=== PATIENT | male | born 1980 | race Two or more races ===

== ENCOUNTER 2019-01-12 23:58 | Inpatient (IN) | payer MEDICAID ==
[~2019-01-12] VITALS: Ht 172.7 cm; Wt 98.0 kg
[2019-01-13] VITALS (8 sets, daily range): BP systolic 110–143; BP diastolic 64–85
--- NOTE | 2019-01-13 00:20 | NUR ---
ED Nurse Note: PT CAME TO ED C/O OF ABD PAIN X2 DAYS PER PT HE HAS HAD N/V/D PAIN IS 10/10. PT SAID HE ATE PORK SKINS AND THINK THAT MAY BE THE PRBLEM
[2019-01-13] MEDS ORDERED: Ketorolac 30mg Inj IV ONE (00:30)
--- NOTE | 2019-01-13 00:34 | Emergency Room Report ---
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 patient presents to the ER denies any cough or congestion denies any blood in the stool he had minimal diarrhea Allergies: Coded Allergies: No Known Allergies (Unverified , 01/13/19) Patient History Past Medical History: see triage record Pertinent Family History: none Reviewed Nursing Documentation: PMH: Agreed; PSxH: Agreed Nursing Documentation-PMH Past Medical History: No Stated History Review of Systems All Other Systems: negative except mentioned in HPI Physical Exam Vital Signs Date Time Temp Pulse Resp B/P (MAP) Pulse Ox O2 Delivery O2 Flow Rate FiO2 01/13/19 00:09 98.8 101 16 117/81 95 Room Air Sp02 EP Interpretation: reviewed, normal General Appearance: well appearing, no apparent distress Head: normocephalic, atraumatic Eyes: bilateral eye PERRL, bilateral eye EOMI ENT: hearing grossly normal, normal pharynx, TMs + canals normal, uvula midline Neck: full range of motion, supple, no meningismus, no bony tend Respiratory: lungs clear, normal breath sounds, no rhonchi, no respiratory distress, no retraction, no accessory muscle use Cardiovascular #1: normal peripheral pulses, regular rate, rhythm, no edema, no gallop, no JVD, no murmur Gastrointestinal: normal bowel sounds, non tender, soft, no mass, no organomegaly, non-distended, no guarding, no hernia, no pulsatile mass, no rebound Genitourinary: no CVA tenderness Musculoskeletal: normal inspection Neurologic: oriented x3, responsive, 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 nml as tested, motor strength/ tone normal, sensory intact Psychiatric: mood/affect normal Skin: normal color, no rash, warm/dry, palpation normal Lymphatic: normal inspection, no adenopathy Medical Decision Making Diagnostic Impression: Primary Impression: Sepsis Additional Impression: Nausea, vomiting, and diarrhea ER Course Multiple differentials and consideration Including but not limited to pharyngitis, retropharyngeal abscess, peritonsillar abscess, meningitis Patient does not reveal clinical signs consistent with meningitis His white blood cell count however is elevated, antibodies are initiated with further hydration Patient required inpatient care Labs Test 01/13/19 00:20 01/13/19 02:23 White Blood Count 21.0 K/UL (4.8-10.8) Red Blood Count 5.21 M/UL (4.70-6.10) Hemoglobin 15.3 G/DL (14.2-18.0) Hematocrit 43.8 % (42.0-52.0) Mean Corpuscular Volume 84 FL (80-99) Mean Corpuscular Hemoglobin 29.4 PG (27.0-31.0) Mean Corpuscular Hemoglobin Concent 35.0 G/DL (32.0-36.0) Red Cell Distribution Width 11.4 % (11.6-14.8) Platelet Count 228 K/UL (150-450) Mean Platelet Volume 8.5 FL (6.5-10.1) Neutrophils (%) (Auto) % (45.0-75.0) Lymphocytes (%) (Auto) % (20.0-45.0) Monocytes (%) (Auto) % (1.0-10.0) Eosinophils (%) (Auto) % (0.0-3.0) Basophils (%) (Auto) % (0.0-2.0) Differential Total Cells Counted 100 Neutrophils % (Manual) 81 % (45-75) Lymphocytes % (Manual) 10 % (20-45) Monocytes % (Manual) 9 % (1-10) Eosinophils % (Manual) 0 % (0-3) Basophils % (Manual) 0 % (0-2) Band Neutrophils 0 % (0-8) Platelet Estimate Adequate Platelet Morphology Normal Urine Color Pale yellow Urine Appearance Clear Urine pH 6 (4.5-8.0) Urine Specific [place] 1.005 (1.005-1.035) Urine Protein Negative (NEGATIVE) Urine Glucose (UA) Negative (NEGATIVE) Urine Ketones Negative (NEGATIVE) Urine Blood Negative (NEGATIVE) Urine Nitrite Negative (NEGATIVE) Urine Bilirubin Negative (NEGATIVE) Urine Urobilinogen Normal MG/DL (0.0-1.0) Urine Leukocyte Esterase 1+ (NEGATIVE) Urine RBC 0-2 /HPF (0 - 0) Urine WBC 0-2 /HPF (0 - 0) Urine Squamous Epithelial Cells Occasional /LPF Urine Bacteria Occasional /HPF (NONE) Sodium Level 136 MMOL/L (136-145) Potassium Level 3.6 MMOL/L (3.5-5.1) Chloride Level 102 MMOL/L (98-107) Carbon Dioxide Level 25 MMOL/L (21-32) Anion Gap 9 mmol/L (5-15) Blood Urea Nitrogen 14 mg/dL (7-18) Creatinine 1.0 MG/DL (0.55-1.30) Estimat Glomerular Filtration Rate > 60 mL/min (>60) Glucose Level 131 MG/DL (74-106) Calcium Level 9.2 MG/DL (8.5-10.1) Total Bilirubin 0.7 MG/DL (0.2-1.0) Aspartate Amino Transf (AST/SGOT) 23 U/L (15-37) Alanine Aminotransferase (ALT/SGPT) 35 U/L (12-78) Alkaline Phosphatase 78 U/L (46-116) Total Creatine Kinase 202 U/L (26-308) Total Protein 8.0 G/DL (6.4-8.2) Albumin 3.7 G/DL (3.4-5.0) Globulin 4.3 g/dL Albumin/Globulin Ratio 0.9 (1.0-2.7) Lipase 267 U/L (73-393) Lactic Acid Level 0.80 mmol/L (0.4-2.0) Last Vital Signs Date Time Temp Pulse Resp B/P (MAP) Pulse Ox O2 Delivery O2 Flow Rate FiO2 01/13/19 00:09 98.8 101 16 117/81 95 Room Air Status: improved Disposition: ADMITTED INPATIENT Condition: Serious Scripts No Active Prescriptions or Reported Meds Beronica Vences DO Jan 13, 2019 00:34
[2019-01-13 00:38] LABS: APPEARANCE,URINE CLEAR; BILIRUBIN, URINE NEGATIVE (NEGATIVE); COLOR,URINE PALE YELLOW; GLUCOSE, URINE (UA) NEGATIVE (NEGATIVE); KETONES,URINE NEGATIVE (NEGATIVE); LEUKOCYTE ESTERASE ,URINE 1+ (NEGATIVE); NITRITE,URINE NEGATIVE (NEGATIVE); PH,URINE 6 (4.5-8.0); PROTEIN,URINE NEGATIVE (NEGATIVE); UROBILINOGEN,URINE NORMAL MG/DL (0.0-1.0)
[2019-01-13 00:40] LABS: HEMATOCRIT 43.8 % (42.0-52.0); HEMOGLOBIN 15.3 G/DL (14.2-18.0); MEAN CORPUSCULAR VOLUME 84 FL (80-99); PLATELET COUNT 228 K/UL (150-450); RED BLOOD COUNT 5.21 M/UL (4.70-6.10); RED CELL DISTRIBUTION WIDTH 11.4 % (11.6-14.8)
[2019-01-13 00:50] LABS: ANION GAP 9 mmol/L (5-15); BLOOD UREA NITROGEN 14 mg/dL (7-18); CALCIUM 9.2 MG/DL (8.5-10.1); CARBON DIOXIDE 25 MMOL/L (21-32); CHLORIDE 102 MMOL/L (98-107); POTASSIUM 3.6 MMOL/L (3.5-5.1); SODIUM 136 MMOL/L (136-145)
[2019-01-13 00:54] LABS: ALANINE AMINOTRANSFERASE 35 U/L (12-78); ALBUMIN 3.7 G/DL (3.4-5.0); ALBUMIN/GLOBULIN RATIO 0.9 (1.0-2.7); ALKALINE PHOSPHATASE 78 U/L (46-116); ASPARTATE AMINO TRANSFERASE 23 U/L (15-37); BILIRUBIN,TOTAL 0.7 MG/DL (0.2-1.0); CREATINE KINASE 202 U/L (26-308)
[2019-01-13] MEDS ORDERED: cefTRIAXone 1 GM in NS 55 ML IVPB ONE (01:15)
--- NOTE | 2019-01-13 03:54 | NUR ---
ED Nurse Note: telephone report given to nicole gage
--- NOTE | 2019-01-13 04:02 | NUR ---
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 PT IS AOX4, PT SKIN INTACT. PT NOT IN ACUTE DISTRESS. ALL BELONGINGS HAVE BEEN SENT WITH HE PT.
--- NOTE | 2019-01-13 04:07 | NUR ---
NURSE NOTES: Patient came from ER via gurney. Report from Lea BREWER. A&OX4. IV site patent and intact. Belonging are checked. Skin intact. at bedside. Bed in lowest position. Call light within reach. Will continue to monitor.
--- NOTE | 2019-01-13 04:25 | NUR ---
NURSE NOTES: Call and left message to Dr. Shaver to get new admit order. Waiting a call back.
--- NOTE | 2019-01-13 06:43 | NUR ---
NURSE NOTES: Call and left message to Dr. Shaver to get new admit order. Waiting a call back.
--- NOTE | 2019-01-13 07:30 | NUR ---
HAND-OFF: Report given to Gissell BREWER.
--- NOTE | 2019-01-13 07:41 | NUR ---
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 VOMITING VS: BP 117/81, P 101, T 98.7, RR 16, SpO2 95 WBC 21.0 IS:NS x1L IV TORADOL 30mg IV CEFTRIAXONE 55ml IVPB ADMITTED TO MED/SURG DC PLAN: RETURN HOME
[2019-01-13] MEDS: Ketorolac 30mg Inj IV PRN ×3 (07:55→22:00)
--- NOTE | 2019-01-13 08:00 | NUR ---
NURSE NOTES: RECEIVED PATIENT IN BED, RESTING AND ALERT x4. PATIENT C/O PAIN. PRN PAIN MEDICATION ADMINISTERED. NO SIGNS OF RESPIRATORY DISTRESS. IV INTACT. SKIN INTACT. AT BEDSIDE. BED IN LOWEST POSITION, CALL LIGHT WITHIN REACH. WILL CONTINUE TO MONITOR.
[2019-01-13 08:05] LABS: HEMATOCRIT 39.4 % (42.0-52.0); HEMOGLOBIN 13.8 G/DL (14.2-18.0); MEAN CORPUSCULAR VOLUME 84 FL (80-99); PLATELET COUNT 201 K/UL (150-450); RED BLOOD COUNT 4.67 M/UL (4.70-6.10); RED CELL DISTRIBUTION WIDTH 11.5 % (11.6-14.8); WHITE BLOOD COUNT 18.8 K/UL (4.8-10.8)
[2019-01-13] MEDS ORDERED: Albuterol/Ipratropium 3ml neb HHN PRN (08:15)
[2019-01-13] MEDS ORDERED: Promethazine/Codeine 5ml UD ORAL PRN (08:15)
[2019-01-13] MEDS ORDERED: Mylanta II UD 30ml ORAL PRN (08:15)
[2019-01-13] MEDS ORDERED: Nitroglycerin Subl 0.4mg tab SL PRN (08:15)
[2019-01-13] MEDS ORDERED: Miralax 17gm pkt ORAL PRN (08:15)
[2019-01-13 08:19] LABS: ALANINE AMINOTRANSFERASE 30 U/L (12-78); ALBUMIN 3.1 G/DL (3.4-5.0); ALBUMIN/GLOBULIN RATIO 0.8 (1.0-2.7); ALKALINE PHOSPHATASE 66 U/L (46-116); ANION GAP 12 mmol/L (5-15); ASPARTATE AMINO TRANSFERASE 19 U/L (15-37); BILIRUBIN,TOTAL 0.5 MG/DL (0.2-1.0); BLOOD UREA NITROGEN 13 mg/dL (7-18); CALCIUM 8.5 MG/DL (8.5-10.1); CARBON DIOXIDE 23 MMOL/L (21-32); CHLORIDE 105 MMOL/L (98-107); CREATININE 0.9 MG/DL (0.55-1.30); PHOSPHORUS 2.2 MG/DL (2.5-4.9); POTASSIUM 3.5 MMOL/L (3.5-5.1); SODIUM 140 MMOL/L (136-145)
--- NOTE | 2019-01-13 08:45 | Consultation ---
History of Present Illness General Date patient seen: Jan 13, 2019 Chief Complaint: Nausea, Vomiting, and Diarrhea Reason for Consultation: Sepsis Present Illness HPI Mr. Presley is 38 yo male who presented to the ED with sore throat and fever. This has been present for 3 days. He says that he has also had 3 days of mild N/ V for several days as well (NB/NB). He denies Cough, Abdominal, CP and SOB. He says that this started with some back pain. 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 He also reports testicular pain with urination but no Dysuria or discharge. He he currently and says that he is faithful to his . No recent travel. Has 5 kids but no sick contacts. No lymphodemopathy. No Hx of STI. In the ED he had no fever but WBCs of 21. PMHx/PSHX None SocHx No E/T/D FamHx Not contributory Allergies: Coded Allergies: No Known Allergies (Unverified , 01/13/19) Medication History No Active Prescriptions or Reported Meds Patient History Healthcare decision maker Resuscitation status Full Code Advanced Directive on File Review of Systems ROS Narrative 12 point ROS negative except as note in the HPI. Physical Exam Last 24 Hour Vital Signs Date Time Temp Pulse Resp B/P (MAP) Pulse Ox O2 Delivery O2 Flow Rate FiO2 01/13/19 08:00 100.1 94 21 127/72 (90) 97 01/13/19 05:17 Room Air 01/13/19 04:10 99.2 90 18 110/66 (81) 100 01/13/19 04:02 98.7 87 22 116/67 100 Room Air 01/13/19 03:58 98.7 87 22 116/67 100 Room Air 01/13/19 02:02 98.7 94 17 110/64 95 Room Air 01/13/19 01:04 98.7 01/13/19 00:20 98.8 101 16 117/81 95 Room Air 01/13/19 00:09 98.8 101 16 117/81 95 Room Air Intake and Output 01/12/19 01/13/19 18:59 06:59 Intake Total 2055 ml Output Total 1 ml Balance 2054 ml Intake IV Total 2055 ml Output Urine Total 1 ml Laboratory Tests Test 01/13/19 00:20 01/13/19 02:23 01/13/19 07:55 White Blood Count 21.0 K/UL (4.8-10.8) H 18.8 K/UL (4.8-10.8) H Red Blood Count 5.21 M/UL (4.70-6.10) 4.67 M/UL (4.70-6.10) L Hemoglobin 15.3 G/DL (14.2-18.0) 13.8 G/DL (14.2-18.0) L Hematocrit 43.8 % (42.0-52.0) 39.4 % (42.0-52.0) L Mean Corpuscular Volume 84 FL (80-99) 84 FL (80-99) Mean Corpuscular Hemoglobin 29.4 PG (27.0-31.0) 29.5 PG (27.0-31.0) Mean Corpuscular Hemoglobin Concent 35.0 G/DL (32.0-36.0) 35.0 G/DL (32.0-36.0) Red Cell Distribution Width 11.4 % (11.6-14.8) L 11.5 % (11.6-14.8) L Platelet Count 228 K/UL (150-450) 201 K/UL (150-450) Mean Platelet Volume 8.5 FL (6.5-10.1) 8.8 FL (6.5-10.1) Neutrophils (%) (Auto) % (45.0-75.0) % (45.0-75.0) Lymphocytes (%) (Auto) % (20.0-45.0) % (20.0-45.0) Monocytes (%) (Auto) % (1.0-10.0) % (1.0-10.0) Eosinophils (%) (Auto) % (0.0-3.0) % (0.0-3.0) Basophils (%) (Auto) % (0.0-2.0) % (0.0-2.0) Differential Total Cells Counted 100 Neutrophils % (Manual) 81 % (45-75) H Pending Lymphocytes % (Manual) 10 % (20-45) L Pending Monocytes % (Manual) 9 % (1-10) Eosinophils % (Manual) 0 % (0-3) Basophils % (Manual) 0 % (0-2) Band Neutrophils 0 % (0-8) Platelet Estimate Adequate Pending Platelet Morphology Normal Pending Urine Color Pale yellow Urine Appearance Clear Urine pH 6 (4.5-8.0) Urine Specific [place] 1.005 (1.005-1.035) Urine Protein Negative (NEGATIVE) Urine Glucose (UA) Negative (NEGATIVE) Urine Ketones Negative (NEGATIVE) Urine Blood Negative (NEGATIVE) Urine Nitrite Negative (NEGATIVE) Urine Bilirubin Negative (NEGATIVE) Urine Urobilinogen Normal MG/DL (0.0-1.0) Urine Leukocyte Esterase 1+ (NEGATIVE) H Urine RBC 0-2 /HPF (0 - 0) H Urine WBC 0-2 /HPF (0 - 0) Urine Squamous Epithelial Cells Occasional /LPF Urine Bacteria Occasional /HPF (NONE) Sodium Level 136 MMOL/L (136-145) 140 MMOL/L (136-145) Potassium Level 3.6 MMOL/L (3.5-5.1) 3.5 MMOL/L (3.5-5.1) Chloride Level 102 MMOL/L (98-107) 105 MMOL/L (98-107) Carbon Dioxide Level 25 MMOL/L (21-32) 23 MMOL/L (21-32) Anion Gap 9 mmol/L (5-15) 12 mmol/L (5-15) Blood Urea Nitrogen 14 mg/dL (7-18) 13 mg/dL (7-18) Creatinine 1.0 MG/DL (0.55-1.30) 0.9 MG/DL (0.55-1.30) Estimat Glomerular Filtration Rate > 60 mL/min (>60) > 60 mL/min (>60) Glucose Level 131 MG/DL (74-106) H 120 MG/DL (74-106) H Calcium Level 9.2 MG/DL (8.5-10.1) 8.5 MG/DL (8.5-10.1) Total Bilirubin 0.7 MG/DL (0.2-1.0) 0.5 MG/DL (0.2-1.0) Aspartate Amino Transf (AST/SGOT) 23 U/L (15-37) 19 U/L (15-37) Alanine Aminotransferase (ALT/SGPT) 35 U/L (12-78) 30 U/L (12-78) Alkaline Phosphatase 78 U/L (46-116) 66 U/L (46-116) Total Creatine Kinase 202 U/L (26-308) Total Protein 8.0 G/DL (6.4-8.2) 6.9 G/DL (6.4-8.2) Albumin 3.7 G/DL (3.4-5.0) 3.1 G/DL (3.4-5.0) L Globulin 4.3 g/dL 3.8 g/dL Albumin/Globulin Ratio 0.9 (1.0-2.7) L 0.8 (1.0-2.7) L Lipase 267 U/L (73-393) Lactic Acid Level 0.80 mmol/L (0.4-2.0) Phosphorus Level 2.2 MG/DL (2.5-4.9) L Magnesium Level 1.7 MG/DL (1.8-2.4) L Height (Feet): 5 Height (Inches): 8.00 Weight (Pounds): 216 Medications Current Medications Medications (Trade) Dose Ordered Sig/Malissa Route PRN Reason Start Time Stop Time Status Last Admin Dose Admin Acetaminophen (Tylenol) 650 mg Q4H PRN ORAL fever 01/13/19 08:15 02/12/19 08:14 Al Hydroxide/Mg Hydroxide (Mylanta II) 30 ml Q6H PRN ORAL dyspepsia 01/13/19 08:15 02/12/19 08:14 Albuterol/ Ipratropium (Albuterol/ Ipratropium) 3 ml Q4H PRN HHN Shortness of Breath 01/13/19 08:15 01/18/19 08:14 Cefepime HCl 1 gm/ Dextrose 55 ml @ 110 mls/hr EVERY 12 HOURS IV 01/13/19 09:00 01/20/19 08:59 Ketorolac Tromethamine (Toradol 30mg) 30 mg Q6H PRN IV For Pain 01/13/19 07:15 01/18/19 07:14 01/13/19 07:55 Nitroglycerin (Ntg) 0.4 mg Q5M PRN SL Prn Chest Pain 01/13/19 08:15 02/12/19 08:14 Ondansetron HCl (Zofran) 4 mg Q6H PRN IVP Nausea & Vomiting 01/13/19 08:15 02/12/19 08:14 Pantoprazole (Protonix) 40 mg DAILY ORAL 01/13/19 09:00 02/12/19 08:59 Polyethylene Glycol (Miralax) 17 gm DAILYPRN PRN ORAL Constipation 01/13/19 08:15 02/12/19 08:14 Promethazine HCl/ Codeine (Phenergan with Codeine) 5 ml Q4H PRN ORAL For Cough 01/13/19 08:15 02/12/19 08:14 Temazepam (Restoril) 15 mg HSPRN PRN ORAL Insomnia 01/13/19 08:15 01/20/19 08:14 Vancomycin HCl (Vanco rx to dose) 1 ea DAILY PRN MISC Per rx protocol 01/13/19 08:15 02/12/19 08:14 Vancomycin HCl/ Dextrose 275 ml @ 137.5 mls/ hr ONCE IVPB 01/13/19 10:00 01/13/19 12:00 Objective Narrative Gen: NAD, well appearing, alert HEENT: NCAT, MMM, EOMI, PERRL, No Oral lesions pharynx with only mild erythema, no scleral icterus NECK: full range of motion, supple, no meningismus, No LAD, No JVD LUNGS: CTAB, No W/C, No Accessory muscle use CARDS: RRR, S1, S2, No M/R/G, ABD: Soft, NT, ND, No R/G, + BS, No HSM, No Masses : Deferred Ext: C/C/E, Pulses 2+ B/L (DP, Rad): NEURO: A/O x 4, Strength and Sensation Grossly intact PSYCH: Mood/affect normal SKIN: Warm/dry, No rashes Assessment/Plan Assessment/Plan 38 yo male who presented to the ED with sore throat and fever. This has been present for several days. Sore throat and with N/V Most likely viral infection Bacterial possible Imaging still pending Leukocytosis of 21 Aferbile PLAN - Start Ceftriaxone and Azithromycin to cover CAP pending studies - EKG to evalaute QTc as starting Azithromycin - f/u Cx - f/u CXR - f/u Abd US - HIV - Urine GC/Ch - Monitor CBC and Temps Thank you for this consult. We will continue to follow the patient during this hospitalization. Aristeo Melo MD Jan 13, 2019 08:45
[2019-01-13] MEDS ORDERED: Heparin 5000 units/ml inj SUBQ SCH (09:00)
[2019-01-13] MEDS ORDERED: Cefepime HCl 1 GM in D5W 55 ML IV SCH (09:00)
[2019-01-13] MEDS ORDERED: Azithromycin 250mg tab ORAL SCH (09:00)
[2019-01-13] MEDS ORDERED: Vancomycin 1.5gm Premix IVPB SCH (10:00)
--- NOTE | 2019-01-13 12:32 | Diagnostic Imaging Report ---
Indication: Elbow pain, nausea, vomiting, abnormal white blood cell count Technique: Gomez-scale and duplex images of the upper abdomen were obtained Comparison: none Findings: Gallbladder is unremarkable, without stones, wall thickening, nor pericholecystic fluid. Sonographic Farrar's sign is negative. Common bile duct measures 6 mm in diameter. No intrahepatic biliary ductal dilatation. Liver demonstrates diffusely increased echogenicity, consistent with diffuse hepatocellular disease, most likely fatty change, into somewhat geographic distribution. Portal vein and hepatic veins are patent. Pancreas is unremarkable. The spleen contains a calcification, is otherwise unremarkable Left kidney measures 10.5 cm in length. Right kidney measures 11.9 cm length. Both kidneys demonstrate normal echogenicity. There is no hydronephrosis. No focal abnormality . Non-aneurysmal abdominal aorta . Impression: Liver demonstrates diffusely increased echogenicity, consistent with diffuse hepatocellular disease, most likely fatty change. Negative for gallstones or dilated ducts Calcification within the spleen, probably on the basis of old granulomatous disease
--- NOTE | 2019-01-13 14:39 | Consultation ---
History of Present Illness General Date patient seen: Jan 13, 2019 Chief Complaint: Nausea, Vomiting, and Diarrhea Reason for Consultation: Sepsis Present Illness HPI 38 year old male presented to ER with CC of nausea/vomiting started a few days ago after eating ethnic food, some kind of pork rib. His initial evaluation showed that he has severe leukocytosis and is admitted for further w/u. Allergies: Coded Allergies: No Known Allergies (Unverified , 01/13/19) Medication History No Active Prescriptions or Reported Meds Patient History Healthcare decision maker Resuscitation status Full Code Advanced Directive on File Review of Systems All Other Systems: negative except mentioned in HPI Physical Exam General Appearance: WD/WN Lines, tubes and drains: central line HEENT: normocephalic, atraumatic Neck: non-tender, supple Respiratory/Chest: chest wall non-tender, lungs clear Cardiovascular/Chest: normal peripheral pulses, normal rate Abdomen: normal bowel sounds Genitourinary/Rectal: normal genital exam Extremities: normal range of motion Last 24 Hour Vital Signs Date Time Temp Pulse Resp B/P (MAP) Pulse Ox O2 Delivery O2 Flow Rate FiO2 01/13/19 12:00 98.8 96 19 124/76 (92) 96 01/13/19 09:56 99.0 01/13/19 09:00 Room Air 01/13/19 08:00 100.1 94 21 127/72 (90) 97 01/13/19 05:17 Room Air 01/13/19 04:10 99.2 90 18 110/66 (81) 100 01/13/19 04:02 98.7 87 22 116/67 100 Room Air 01/13/19 03:58 98.7 87 22 116/67 100 Room Air 01/13/19 02:02 98.7 94 17 110/64 95 Room Air 01/13/19 01:04 98.7 01/13/19 00:20 98.8 101 16 117/81 95 Room Air 01/13/19 00:09 98.8 101 16 117/81 95 Room Air Intake and Output 01/12/19 01/13/19 19:00 07:00 Intake Total 2055 ml Output Total 1 ml Balance 2054 ml Intake IV Total 2055 ml Output Urine Total 1 ml Laboratory Tests Test 01/13/19 00:20 01/13/19 02:23 01/13/19 07:55 01/13/19 10:30 White Blood Count 21.0 K/UL (4.8-10.8) H 18.8 K/UL (4.8-10.8) H Red Blood Count 5.21 M/UL (4.70-6.10) 4.67 M/UL (4.70-6.10) L Hemoglobin 15.3 G/DL (14.2-18.0) 13.8 G/DL (14.2-18.0) L Hematocrit 43.8 % (42.0-52.0) 39.4 % (42.0-52.0) L Mean Corpuscular Volume 84 FL (80-99) 84 FL (80-99) Mean Corpuscular Hemoglobin 29.4 PG (27.0-31.0) 29.5 PG (27.0-31.0) Mean Corpuscular Hemoglobin Concent 35.0 G/DL (32.0-36.0) 35.0 G/DL (32.0-36.0) Red Cell Distribution Width 11.4 % (11.6-14.8) L 11.5 % (11.6-14.8) L Platelet Count 228 K/UL (150-450) 201 K/UL (150-450) Mean Platelet Volume 8.5 FL (6.5-10.1) 8.8 FL (6.5-10.1) Neutrophils (%) (Auto) % (45.0-75.0) % (45.0-75.0) Lymphocytes (%) (Auto) % (20.0-45.0) % (20.0-45.0) Monocytes (%) (Auto) % (1.0-10.0) % (1.0-10.0) Eosinophils (%) (Auto) % (0.0-3.0) % (0.0-3.0) Basophils (%) (Auto) % (0.0-2.0) % (0.0-2.0) Differential Total Cells Counted 100 100 Neutrophils % (Manual) 81 % (45-75) H 87 % (45-75) H Lymphocytes % (Manual) 10 % (20-45) L 12 % (20-45) L Monocytes % (Manual) 9 % (1-10) 1 % (1-10) Eosinophils % (Manual) 0 % (0-3) 0 % (0-3) Basophils % (Manual) 0 % (0-2) 0 % (0-2) Band Neutrophils 0 % (0-8) 0 % (0-8) Platelet Estimate Adequate Adequate Platelet Morphology Normal Normal Urine Color Pale yellow Urine Appearance Clear Urine pH 6 (4.5-8.0) Urine Specific [place] 1.005 (1.005-1.035) Urine Protein Negative (NEGATIVE) Urine Glucose (UA) Negative (NEGATIVE) Urine Ketones Negative (NEGATIVE) Urine Blood Negative (NEGATIVE) Urine Nitrite Negative (NEGATIVE) Urine Bilirubin Negative (NEGATIVE) Urine Urobilinogen Normal MG/DL (0.0-1.0) Urine Leukocyte Esterase 1+ (NEGATIVE) H Urine RBC 0-2 /HPF (0 - 0) H Urine WBC 0-2 /HPF (0 - 0) Urine Squamous Epithelial Cells Occasional /LPF Urine Bacteria Occasional /HPF (NONE) Sodium Level 136 MMOL/L (136-145) 140 MMOL/L (136-145) Potassium Level 3.6 MMOL/L (3.5-5.1) 3.5 MMOL/L (3.5-5.1) Chloride Level 102 MMOL/L (98-107) 105 MMOL/L (98-107) Carbon Dioxide Level 25 MMOL/L (21-32) 23 MMOL/L (21-32) Anion Gap 9 mmol/L (5-15) 12 mmol/L (5-15) Blood Urea Nitrogen 14 mg/dL (7-18) 13 mg/dL (7-18) Creatinine 1.0 MG/DL (0.55-1.30) 0.9 MG/DL (0.55-1.30) Estimat Glomerular Filtration Rate > 60 mL/min (>60) > 60 mL/min (>60) Glucose Level 131 MG/DL (74-106) H 120 MG/DL (74-106) H Calcium Level 9.2 MG/DL (8.5-10.1) 8.5 MG/DL (8.5-10.1) Total Bilirubin 0.7 MG/DL (0.2-1.0) 0.5 MG/DL (0.2-1.0) Aspartate Amino Transf (AST/SGOT) 23 U/L (15-37) 19 U/L (15-37) Alanine Aminotransferase (ALT/SGPT) 35 U/L (12-78) 30 U/L (12-78) Alkaline Phosphatase 78 U/L (46-116) 66 U/L (46-116) Total Creatine Kinase 202 U/L (26-308) Total Protein 8.0 G/DL (6.4-8.2) 6.9 G/DL (6.4-8.2) Albumin 3.7 G/DL (3.4-5.0) 3.1 G/DL (3.4-5.0) L Globulin 4.3 g/dL 3.8 g/dL Albumin/Globulin Ratio 0.9 (1.0-2.7) L 0.8 (1.0-2.7) L Lipase 267 U/L (73-393) HIV (1&2) Antibody Rapid Negative (NEGATIVE) Lactic Acid Level 0.80 mmol/L (0.4-2.0) Red Blood Cell Morphology Normal Phosphorus Level 2.2 MG/DL (2.5-4.9) L Magnesium Level 1.7 MG/DL (1.8-2.4) L Chlamydia trachomatis RNA Pending Neisseria gonorrhoeae RNA Pending Height (Feet): 5 Height (Inches): 8.00 Weight (Pounds): 216 Medications Current Medications Medications (Trade) Dose Ordered Sig/Malissa Route PRN Reason Start Time Stop Time Status Last Admin Dose Admin Acetaminophen (Tylenol) 650 mg Q4H PRN ORAL fever 01/13/19 08:15 02/12/19 08:14 01/13/19 09:26 Al Hydroxide/Mg Hydroxide (Mylanta II) 30 ml Q6H PRN ORAL dyspepsia 01/13/19 08:15 02/12/19 08:14 Albuterol/ Ipratropium (Albuterol/ Ipratropium) 3 ml Q4H PRN HHN Shortness of Breath 01/13/19 08:15 01/18/19 08:14 Azithromycin (Zithromax) 250 mg DAILY ORAL 01/14/19 09:00 01/17/19 23:55 Ceftriaxone Sodium 1 gm/ Dextrose 55 ml @ 110 mls/hr Q24H IVPB 01/13/19 21:00 01/20/19 20:59 Ketorolac Tromethamine (Toradol 30mg) 30 mg Q6H PRN IV For Pain 01/13/19 07:15 01/18/19 07:14 01/13/19 07:55 Nitroglycerin (Ntg) 0.4 mg Q5M PRN SL Prn Chest Pain 01/13/19 08:15 02/12/19 08:14 Ondansetron HCl (Zofran) 4 mg Q6H PRN IVP Nausea & Vomiting 01/13/19 08:15 02/12/19 08:14 Pantoprazole (Protonix) 40 mg DAILY ORAL 01/13/19 09:00 02/12/19 08:59 01/13/19 09:26 Polyethylene Glycol (Miralax) 17 gm DAILYPRN PRN ORAL Constipation 01/13/19 08:15 02/12/19 08:14 Promethazine HCl/ Codeine (Phenergan with Codeine) 5 ml Q4H PRN ORAL For Cough 01/13/19 08:15 02/12/19 08:14 Temazepam (Restoril) 15 mg HSPRN PRN ORAL Insomnia 01/13/19 08:15 01/20/19 08:14 Assessment/Plan Problem List: (1) Nausea, vomiting, and diarrhea ICD Codes: R11.2 - Nausea with vomiting, unspecified; R19.7 - Diarrhea, unspecified SNOMED: 9139031 (2) Sepsis ICD Codes: A41.9 - Sepsis, unspecified organism SNOMED: 46111443 Assessment/Plan c/u stool cultures iv fluids iv abx check wbc in am. Maryana Moscoso MD Jan 13, 2019 14:39
--- NOTE | 2019-01-13 16:26 | History & Physical ---
History and Physical History & Physicial job # [id number] Ranjith Shaver MD Jan 13, 2019 16:26
[2019-01-13] MEDS ORDERED: Isovue-300 100ml vial INJ PRN (16:30)
[2019-01-13] MEDS ORDERED: Vancomycin 1gm/D5W 275ml IVPB SCH ×2 (18:00)
--- NOTE | 2019-01-13 19:22 | Diagnostic Imaging Report ---
EXAM: CT Abdomen and Pelvis With Intravenous Contrast CLINICAL HISTORY: ABD DIST TECHNIQUE: Axial computed tomography images of the abdomen and pelvis with intravenous contrast. CTDI is 0.15, 18.4 mGy and DLP is 1008 mGy-cm. One or more of the following dose reduction techniques were used: automated exposure control, adjustment of the mA and/or kV according to patient size, use of iterative reconstruction technique. Coronal and sagittal reformatted images were created and reviewed. COMPARISON: No relevant prior studies available. FINDINGS: Lung bases: Probable mild linear atelectasis versus scarring at the lung bases. ABDOMEN: Liver: The liver is unremarkable. Gallbladder and bile ducts: The gallbladder is unremarkable. No calcified stones. No ductal dilation. Pancreas: The pancreas is unremarkable. No ductal dilation. Spleen: The spleen is unremarkable. Adrenals: The adrenals are unremarkable. Kidneys and ureters: Mild scarring suspected of the left kidney. No hydronephrosis. Stomach and bowel: No evidence for significant bowel loop dilation to suggest an obstructive process. Diverticulosis without evidence for diverticulitis. No evidence for bowel related inflammatory changes. PELVIS: Appendix: The appendix is normal. Bladder: The bladder is grossly unremarkable. Reproductive: The prostate gland appears prominent measuring 5.5 x 4.1 cm in maximum transverse dimensions. ABDOMEN and PELVIS: Intraperitoneal space: No free intraperitoneal fluid or free intraperitoneal gas. Bones/joints: Mild degenerative changes of the thoracolumbar spine. No acute fracture. No dislocation. Soft tissues: Unremarkable. Vasculature: Unremarkable. No abdominal aortic aneurysm. Lymph nodes: Unremarkable. No enlarged lymph nodes. IMPRESSION: 1. No evidence for significant bowel loop dilation to suggest an obstructive process. 2. The prostate gland appears prominent measuring 5.5 x 4.1 cm in maximum transverse dimensions. 3. Diverticulosis without evidence for diverticulitis.
--- NOTE | 2019-01-13 19:27 | NUR ---
HAND-OFF: Report given to OSMAN ELENA.
--- NOTE | 2019-01-13 19:30 | NUR ---
NURSE NOTES: Received patient in no apparent distress. A&OX4. IV site patent and intact. at bedside. Bed in lowest position. Call light within reach. Will continue to monitor.
[2019-01-13] MEDS: cefTRIAXone 1 GM in D5W 55 ML IVPB SCH (21:38)
[2019-01-13] MEDS ORDERED: cefTRIAXone 1 GM in D5W 55 ML IVPB SCH (22:00)
--- NOTE | 2019-01-13 22:00 | History and Physical Report ---
DATE OF ADMISSION: 01/13/2019 CHIEF COMPLAINT: Left flank pain. HISTORY OF PRESENT ILLNESS: This is a 38-year-old gentleman, denies any past medical history and past surgical history, who presented to the hospital complaining about the severe back pain mostly in the left flank area associated with the nausea and vomiting. He denies any fever or chills. Denies any loss of consciousness. Denies any fall or trauma. Shortly after initial evaluation in the emergency, the patient was admitted to the hospital with nausea and vomiting and diarrhea and a mild elevation of WBC, possible due to infection. PAST MEDICAL HISTORY/PAST SURGICAL HISTORY: None. MEDICATIONS: None. ALLERGIES: No known drug allergies. SOCIAL HISTORY: No smoking, alcohol, or drugs. FAMILY HISTORY: Noncontributory. REVIEW OF SYSTEMS: Mostly as above. PHYSICAL EXAMINATION: VITAL SIGNS: Temperature 98.8, pulse of 101, respirations 16, and blood pressure 117/81. GENERAL: The patient is awake and responsive, in no acute distress. HEAD AND NECK: Pupils are reactive to light. Extraocular movements intact. Neck was supple. No JVD. LUNGS: Good air entry. No wheezing or rales. HEART: Reveals S1, S2. Regular rate and rhythm. No gallops. ABDOMEN: Soft, nondistended, and nontender. Mildly obese. Left flank tenderness. No rebound or tenderness. No fluid shift. EXTREMITIES: No cyanosis, clubbing, or edema. NEUROLOGIC: Cranial nerves II through XII grossly intact. Motor is 5/5 in all extremities. Gait is intact. RECTAL AND GENITOURINARY: Refused and deferred. PSYCHIATRIC: Mood and affect intact. LABORATORY DATA: Laboratory on admission, sodium 136, potassium 3.6, chloride 103, bicarb 25, BUN 14, and creatinine 1.0. The patient's calcium was 9.2, magnesium was 1.7, and albumin is 3.7. Lipase is 267. AST of 23, ALT of 35, and alkaline phosphatase of 78. Urinalysis, +1 leukocyte and 0 to 2 wbc. Rapid human immunodeficiency virus test is negative. WBC of 21, hemoglobin 15, hematocrit of 43, and platelets is 228,000. The patient had an ultrasound of the abdomen done, which noted to be liver demonstrated diffuse increased echogenicity consistent with diffuse hepatocellular disease, most likely fatty liver, negative for the gallstone or dilated duct, calcification within the splint, and probable base of the old granulomatous disease. ASSESSMENT: 1. Left flank tenderness. 2. Elevated WBC, possible sepsis. PLAN: 1. Admit the patient to medical/surgical. 2. We will follow up laboratory. 3. Clear liquid diet. 4. CT scan of the abdomen and pelvis. 5. Broad-spectrum antibiotics with Rocephin and follow up with the culture. 6. Code status is Full Code. 7. DVT prophylaxis with heparin subcutaneous. aRnjith Shaver M.D. DR: FRANCIA JOB#: [id number] CC:
[2019-01-14 04:00] VITALS: BP 124/68
--- NOTE | 2019-01-14 07:09 | NUR ---
HAND-OFF: Report given to Gissell BREWER.
[2019-01-14] MEDS ORDERED: IBUPROFEN600 MG ORAL (07:29)
[2019-01-14 07:32] LABS: BASOPHILS % (AUTO) 0.6 % (0.0-2.0); EOSINOPHILS % (AUTO) 0.9 % (0.0-3.0); HEMATOCRIT 37.3 % (42.0-52.0); HEMOGLOBIN 13.1 G/DL (14.2-18.0); LYMPHOCYTES % (AUTO) 18.1 % (20.0-45.0); MEAN CORPUSCULAR VOLUME 85 FL (80-99); MONOCYTES % (AUTO) 9.5 % (1.0-10.0); NEUTROPHILS % (AUTO) 70.9 % (45.0-75.0); PLATELET COUNT 192 K/UL (150-450); RED BLOOD COUNT 4.38 M/UL (4.70-6.10); RED CELL DISTRIBUTION WIDTH 11.6 % (11.6-14.8); WHITE BLOOD COUNT 16.5 K/UL (4.8-10.8)
[2019-01-14 08:00] VITALS: BP 125/75
--- NOTE | 2019-01-14 08:00 | NUR ---
NURSE NOTES: RECEIVED PATIENT IN BED, RESTING AND ALERT x4. AT BEDSIDE. PATIENT C/O MILD PAIN BUT NOT REQUESTING PRN PAIN MEDICATION. IV INTACT. RESPIRATIONS EVEN AND UNLABORED. NO SIGNS OF RESPIRATORY DISTRESS. BED IN LOWEST POSITION, PATIENT'S IPHONE AT BEDSIDE. CALL LIGHT WITHIN REACH. WILL CONTINUE TO MONITOR.
[2019-01-14 08:01] LABS: ALANINE AMINOTRANSFERASE 34 U/L (12-78); ALBUMIN 2.9 G/DL (3.4-5.0); ALBUMIN/GLOBULIN RATIO 0.7 (1.0-2.7); ALKALINE PHOSPHATASE 66 U/L (46-116); ANION GAP 9 mmol/L (5-15); ASPARTATE AMINO TRANSFERASE 19 U/L (15-37); BILIRUBIN,TOTAL 0.3 MG/DL (0.2-1.0); BLOOD UREA NITROGEN 12 mg/dL (7-18); CALCIUM 8.7 MG/DL (8.5-10.1); CARBON DIOXIDE 24 MMOL/L (21-32); CHLORIDE 106 MMOL/L (98-107); CREATININE 0.8 MG/DL (0.55-1.30); PHOSPHORUS 3.1 MG/DL (2.5-4.9); POTASSIUM 3.7 MMOL/L (3.5-5.1); SODIUM 139 MMOL/L (136-145)
[2019-01-14] MEDS: Azithromycin 250mg tab ORAL SCH (08:09)
[2019-01-14 12:00] VITALS: BP 122/87
--- NOTE | 2019-01-14 12:11 | Pulmonology Progress Note ---
Assessment/Plan Problems: (1) Nausea, vomiting, and diarrhea (2) Sepsis (3) Acute bacterial tonsillitis Assessment/Plan iv abx CT of neck check electrolytes will hc home when afebrile for > 24 hours. Subjective ROS Limited/Unobtainable: No Constitutional: Reports: no symptoms HEENT: Repors: no symptoms Allergies: Coded Allergies: No Known Allergies (Unverified , 01/13/19) Objective Last 24 Hour Vital Signs Date Time Temp Pulse Resp B/P (MAP) Pulse Ox O2 Delivery O2 Flow Rate FiO2 01/14/19 12:00 101.4 100 22 122/87 (99) 97 01/14/19 09:00 Room Air 01/14/19 08:00 98.2 86 16 125/75 (92) 97 01/14/19 07:50 86 20 Room Air 21 01/14/19 04:00 98.4 83 18 124/68 (86) 96 01/13/19 21:00 Room Air 01/13/19 20:51 102 24 Room Air 21 01/13/19 20:00 100.1 90 19 110/74 (86) 97 01/13/19 16:24 99.2 01/13/19 16:00 100.5 97 18 143/85 (104) 97 Intake and Output 01/13/19 01/14/19 18:59 06:59 Intake Total 855 ml Balance 855 ml Intake IV Total 55 ml Other 800 ml # Voids 1 Objective General Appearance: WD/WN Lines, tubes and drains: peripheral HEENT: normocephalic, anicteric Neck: non-tender, normal alignment Respiratory/Chest: chest wall non-tender, lungs clear Breasts: no masses Cardiovascular/Chest: normal peripheral pulses Abdomen: normal bowel sounds Genitourinary/Rectal: normal genital Microbiology Date/Time Source Procedure Growth Status 01/13/19 10:30 Throat Group A Streptococcus Screen ([facility]) - Preliminary Resulted Laboratory Tests 01/14/19 06:40: White Blood Count 16.5H, Red Blood Count 4.38L, Hemoglobin 13.1L, Hematocrit 37.3L, Mean Corpuscular Volume 85, Mean Corpuscular Hemoglobin 29.8, Mean Corpuscular Hemoglobin Concent 35.0, Red Cell Distribution Width 11.6, Platelet Count 192, Mean Platelet Volume 8.5, Neutrophils (%) (Auto) 70.9, Lymphocytes (% ) (Auto) 18.1L, Monocytes (%) (Auto) 9.5, Eosinophils (%) (Auto) 0.9, Basophils (%) (Auto) 0.6, Erythrocyte Sedimentation Rate 34H, Sodium Level 139, Potassium Level 3.7, Chloride Level 106, Carbon Dioxide Level 24, Anion Gap 9, Blood Urea Nitrogen 12, Creatinine 0.8, Estimat Glomerular Filtration Rate > 60, Glucose Level 100, Calcium Level 8.7, Phosphorus Level 3.1, Magnesium Level 1.9, Total Bilirubin 0.3, Aspartate Amino Transf (AST/SGOT) 19, Alanine Aminotransferase ( ALT/SGPT) 34, Alkaline Phosphatase 66, C-Reactive Protein, Quantitative 16.4H, Total Protein 7.0, Albumin 2.9L, Globulin 4.1, Albumin/Globulin Ratio 0.7L Current Medications Medications (Trade) Dose Ordered Sig/Malissa Route PRN Reason Start Time Stop Time Status Last Admin Dose Admin Acetaminophen (Tylenol) 650 mg Q4H PRN ORAL fever 01/13/19 08:15 02/12/19 08:14 01/13/19 15:54 Al Hydroxide/Mg Hydroxide (Mylanta II) 30 ml Q6H PRN ORAL dyspepsia 01/13/19 08:15 02/12/19 08:14 Albuterol/ Ipratropium (Albuterol/ Ipratropium) 3 ml Q4H PRN HHN Shortness of Breath 01/13/19 08:15 01/18/19 08:14 Azithromycin (Zithromax) 250 mg DAILY ORAL 01/14/19 09:00 01/17/19 23:55 01/14/19 08:09 Barium Sulfate (Readi-Cat 2) 450 ml NOW PRN ORAL Radiology Procedure 01/13/19 16:30 01/15/19 16:20 Ceftriaxone Sodium 1 gm/ Dextrose 55 ml @ 110 mls/hr Q24H IVPB 01/13/19 21:00 01/20/19 20:59 01/13/19 21:38 Iopamidol (Isovue-300 100ml) 100 ml NOW PRN INJ Radiology Procedure 01/13/19 16:30 01/15/19 16:29 Ketorolac Tromethamine (Toradol 30mg) 30 mg Q6H PRN IV For Pain 01/13/19 07:15 01/18/19 07:14 01/13/19 22:00 Nitroglycerin (Ntg) 0.4 mg Q5M PRN SL Prn Chest Pain 01/13/19 08:15 02/12/19 08:14 Ondansetron HCl (Zofran) 4 mg Q6H PRN IVP Nausea & Vomiting 01/13/19 08:15 02/12/19 08:14 Pantoprazole (Protonix) 40 mg DAILY ORAL 01/13/19 09:00 02/12/19 08:59 01/14/19 08:09 Polyethylene Glycol (Miralax) 17 gm DAILYPRN PRN ORAL Constipation 01/13/19 08:15 02/12/19 08:14 Promethazine HCl/ Codeine (Phenergan with Codeine) 5 ml Q4H PRN ORAL For Cough 01/13/19 08:15 02/12/19 08:14 Temazepam (Restoril) 15 mg HSPRN PRN ORAL Insomnia 01/13/19 08:15 01/20/19 08:14 Maryana Moscoso MD Jan 14, 2019 12:11
[2019-01-14] MEDS ORDERED: Isovue-300 100ml vial INJ PRN (12:15)
--- NOTE | 2019-01-14 14:28 | Diagnostic Imaging Report ---
INDICATION: Abscess TECHNIQUE: Multiple, contiguous 2.5 mm axial cuts of the neck are obtained from the skull base to the thoracic inlet following the administration of IV contrast. Sagittal and coronal reformatted images are provided. Technique more: One or more of the following dose reduction techniques were used: automated exposure control, adjustment of the mA and/or kV according to patient size, use of iterative reconstruction technique. COMPARISON: None FINDINGS: The visualized portions of the middle and posterior fossa of the brain are normal. The soft tissues of the nasopharynx, oropharynx and hypopharynx appear normal. The supraglottic, glottic and infraglottic structures including the true and false cords, thyroid lamina and cricoid are symmetric and normal in appearance. Enlarged bilateral parapharyngeal tonsils may be suggestive of tonsillitis. Scattered prominent but not enlarged by CT size criteria lymph nodes. No organized fluid collection. The parotid, submandibular and thyroid glands are normal in size and attenuation. The airway is patent and the trachea is midline. No bony abnormalities are seen. IMPRESSION: Enlarged bilateral parapharyngeal tonsils may be suggestive of tonsillitis. Scattered prominent but not enlarged by CT size criteria lymph nodes. No organized fluid collection. CTDI: 20.06 mGy DLP: 507.59 mGycm
--- NOTE | 2019-01-14 15:15 | Infectious Diseases Prog Note ---
Assessment/Plan Assessment/Plan Assessment/Plan 38 yo male who presented to the ED with sore throat and fever. This has been present for several days. Sore throat and with N/V- Tonsillitis Most likely viral infection Bacterial possible Neck CT: Enlarged bilateral parapharyngeal tonsils may be suggestive of tonsillitis. Scattered prominent but not enlarged by CT size criteria lymph nodes. No organized fluid collection. -CXR p Leukocytosis of 21; irmpoving Fever -CT abdp: 1. No evidence for significant bowel loop dilation to suggest an obstructive process.The prostate gland appears prominent measuring 5.5 x 4.1 cm in maximum transverse dimensions. Diverticulosis without evidence for diverticulitis. -hIV ab neg strep sc neg PLAN -Cont Ceftriaxone and Azithromycin #2 to cover CAP pending studies -Add empiric Tamiflu -throat cx - EKG to evalaute QTc as starting Azithromycin - f/u Cx - f/u CXR - f/u Abd US - f/u Urine GC/Ch - Monitor CBC and Temps -HIV VL, monospot, influenza sc Thank you for this consult. We will continue to follow the patient during this hospitalization. Subjective Allergies: Coded Allergies: No Known Allergies (Unverified , 01/13/19) Objective Vital Signs Last 24 Hour Vital Signs Date Time Temp Pulse Resp B/P (MAP) Pulse Ox O2 Delivery O2 Flow Rate FiO2 01/14/19 12:42 98.9 01/14/19 12:00 101.4 100 22 122/87 (99) 97 01/14/19 09:00 Room Air 01/14/19 08:00 98.2 86 16 125/75 (92) 97 01/14/19 07:50 86 20 Room Air 21 01/14/19 04:00 98.4 83 18 124/68 (86) 96 01/13/19 21:00 Room Air 01/13/19 20:51 102 24 Room Air 21 01/13/19 20:00 100.1 90 19 110/74 (86) 97 01/13/19 16:00 100.5 97 18 143/85 (104) 97 Height (Feet): 5 Height (Inches): 8.00 Weight (Pounds): 216 Objective Gen: NAD, well appearing, alert HEENT: NCAT, MMM, EOMI, PERRL, No Oral lesions pharynx with only mild erythema, no scleral icterus NECK: full range of motion, supple, no meningismus, No LAD, No JVD LUNGS: CTAB, No W/C, No Accessory muscle use CARDS: RRR, S1, S2, No M/R/G, ABD: Soft, NT, ND, No R/G, + BS, No HSM, No Masses : Deferred Ext: C/C/E, Pulses 2+ B/L (DP, Rad): NEURO: A/O x 4, Strength and Sensation Grossly intact PSYCH: Mood/affect normal SKIN: Warm/dry, No rashes Microbiology Date/Time Source Procedure Growth Status 01/13/19 10:30 Throat Group A Streptococcus Screen ([facility]) - Preliminary Resulted Laboratory Tests Test 01/14/19 06:40 White Blood Count 16.5 K/UL (4.8-10.8) H Red Blood Count 4.38 M/UL (4.70-6.10) L Hemoglobin 13.1 G/DL (14.2-18.0) L Hematocrit 37.3 % (42.0-52.0) L Mean Corpuscular Volume 85 FL (80-99) Mean Corpuscular Hemoglobin 29.8 PG (27.0-31.0) Mean Corpuscular Hemoglobin Concent 35.0 G/DL (32.0-36.0) Red Cell Distribution Width 11.6 % (11.6-14.8) Platelet Count 192 K/UL (150-450) Mean Platelet Volume 8.5 FL (6.5-10.1) Neutrophils (%) (Auto) 70.9 % (45.0-75.0) Lymphocytes (%) (Auto) 18.1 % (20.0-45.0) L Monocytes (%) (Auto) 9.5 % (1.0-10.0) Eosinophils (%) (Auto) 0.9 % (0.0-3.0) Basophils (%) (Auto) 0.6 % (0.0-2.0) Erythrocyte Sedimentation Rate 34 MM/HR (0-15) H Sodium Level 139 MMOL/L (136-145) Potassium Level 3.7 MMOL/L (3.5-5.1) Chloride Level 106 MMOL/L (98-107) Carbon Dioxide Level 24 MMOL/L (21-32) Anion Gap 9 mmol/L (5-15) Blood Urea Nitrogen 12 mg/dL (7-18) Creatinine 0.8 MG/DL (0.55-1.30) Estimat Glomerular Filtration Rate > 60 mL/min (>60) Glucose Level 100 MG/DL (74-106) Calcium Level 8.7 MG/DL (8.5-10.1) Phosphorus Level 3.1 MG/DL (2.5-4.9) Magnesium Level 1.9 MG/DL (1.8-2.4) Total Bilirubin 0.3 MG/DL (0.2-1.0) Aspartate Amino Transf (AST/SGOT) 19 U/L (15-37) Alanine Aminotransferase (ALT/SGPT) 34 U/L (12-78) Alkaline Phosphatase 66 U/L (46-116) C-Reactive Protein, Quantitative 16.4 mg/dL (0.00-0.90) H Total Protein 7.0 G/DL (6.4-8.2) Albumin 2.9 G/DL (3.4-5.0) L Globulin 4.1 g/dL Albumin/Globulin Ratio 0.7 (1.0-2.7) L Current Medications Medications (Trade) Dose Ordered Sig/Malissa Route PRN Reason Start Time Stop Time Status Last Admin Dose Admin Acetaminophen (Tylenol) 650 mg Q4H PRN ORAL fever 01/13/19 08:15 02/12/19 08:14 01/14/19 12:12 Al Hydroxide/Mg Hydroxide (Mylanta II) 30 ml Q6H PRN ORAL dyspepsia 01/13/19 08:15 02/12/19 08:14 Albuterol/ Ipratropium (Albuterol/ Ipratropium) 3 ml Q4H PRN HHN Shortness of Breath 01/13/19 08:15 01/18/19 08:14 Azithromycin (Zithromax) 250 mg DAILY ORAL 01/14/19 09:00 01/17/19 23:55 01/14/19 08:09 Barium Sulfate (Readi-Cat 2) 450 ml NOW PRN ORAL Radiology Procedure 01/13/19 16:30 01/15/19 16:20 Ceftriaxone Sodium 1 gm/ Dextrose 55 ml @ 110 mls/hr Q24H IVPB 01/13/19 21:00 01/20/19 20:59 01/13/19 21:38 Iopamidol (Isovue-300 100ml) 100 ml NOW PRN INJ Radiology Procedure 01/13/19 16:30 01/15/19 16:29 Ketorolac Tromethamine (Toradol 30mg) 30 mg Q6H PRN IV For Pain 01/13/19 07:15 01/18/19 07:14 01/13/19 22:00 Nitroglycerin (Ntg) 0.4 mg Q5M PRN SL Prn Chest Pain 01/13/19 08:15 02/12/19 08:14 Ondansetron HCl (Zofran) 4 mg Q6H PRN IVP Nausea & Vomiting 01/13/19 08:15 02/12/19 08:14 Pantoprazole (Protonix) 40 mg DAILY ORAL 01/13/19 09:00 02/12/19 08:59 01/14/19 08:09 Polyethylene Glycol (Miralax) 17 gm DAILYPRN PRN ORAL Constipation 01/13/19 08:15 02/12/19 08:14 Promethazine HCl/ Codeine (Phenergan with Codeine) 5 ml Q4H PRN ORAL For Cough 01/13/19 08:15 02/12/19 08:14 Temazepam (Restoril) 15 mg HSPRN PRN ORAL Insomnia 01/13/19 08:15 01/20/19 08:14 Radha Sanchez M.D. Jan 14, 2019 15:15
--- NOTE | 2019-01-14 15:57 | NUR ---
CASE MANAGEMENT: REVIEW 01/14/2019 SI;SEPSIS. VOMITING. T: 101.4 HR 100 RR 22 B/P 122/87 SATS 97% ON RA WBC 16.5 ESR 34 IS:TAMIFLU PO BID PROTONIX PO QD AZITHROMYCIN PO QD CEFTRIAXONE IV Q24H MED/SURG STATUS PLAN OF CARE: -Cont Ceftriaxone and Azithromycin #2 to cover CAP pending studies -Add empiric Tamiflu -throat cx -HIV VIRAL LOAD, monospot, influenza sc
[2019-01-14 16:00] VITALS: BP 118/71
[2019-01-14] MEDS: Ketorolac 30mg Inj IV PRN (16:34)
[2019-01-14] MEDS: Oseltamivir 75mg cap ORAL SCH (17:09)
--- NOTE | 2019-01-14 17:55 | Internal Med Progress Note ---
Subjective Date of Service: Jan 14, 2019 Physician Name Cliff Nowak Attending Physician Ranjith Shaver MD Current Medications Medications (Trade) Dose Ordered Sig/Malissa Route PRN Reason Start Time Stop Time Status Last Admin Dose Admin Acetaminophen (Tylenol) 650 mg Q4H PRN ORAL fever 01/13/19 08:15 02/12/19 08:14 01/14/19 12:12 Al Hydroxide/Mg Hydroxide (Mylanta II) 30 ml Q6H PRN ORAL dyspepsia 01/13/19 08:15 02/12/19 08:14 Albuterol/ Ipratropium (Albuterol/ Ipratropium) 3 ml Q4H PRN HHN Shortness of Breath 01/13/19 08:15 01/18/19 08:14 Azithromycin (Zithromax) 250 mg DAILY ORAL 01/14/19 09:00 01/17/19 23:55 01/14/19 08:09 Barium Sulfate (Readi-Cat 2) 450 ml NOW PRN ORAL Radiology Procedure 01/13/19 16:30 01/15/19 16:20 Ceftriaxone Sodium 1 gm/ Dextrose 55 ml @ 110 mls/hr Q24H IVPB 01/13/19 21:00 01/20/19 20:59 01/13/19 21:38 Cetylpyridinium Chloride (Cepacol) 1 lozg Q2H PRN TURNER SORE THROAT 01/14/19 17:31 02/13/19 17:30 Iopamidol (Isovue-300 100ml) 100 ml NOW PRN INJ Radiology Procedure 01/13/19 16:30 01/15/19 16:29 Ketorolac Tromethamine (Toradol 30mg) 30 mg Q6H PRN IV For Pain 01/13/19 07:15 01/18/19 07:14 01/14/19 16:34 Nitroglycerin (Ntg) 0.4 mg Q5M PRN SL Prn Chest Pain 01/13/19 08:15 02/12/19 08:14 Ondansetron HCl (Zofran) 4 mg Q6H PRN IVP Nausea & Vomiting 01/13/19 08:15 02/12/19 08:14 Oseltamivir Phosphate (Tamiflu) 75 mg TWICE A DAY ORAL 01/14/19 18:00 01/19/19 17:59 01/14/19 17:09 Pantoprazole (Protonix) 40 mg DAILY ORAL 01/13/19 09:00 02/12/19 08:59 01/14/19 08:09 Polyethylene Glycol (Miralax) 17 gm DAILYPRN PRN ORAL Constipation 01/13/19 08:15 02/12/19 08:14 Promethazine HCl/ Codeine (Phenergan with Codeine) 5 ml Q4H PRN ORAL For Cough 01/13/19 08:15 02/12/19 08:14 Temazepam (Restoril) 15 mg HSPRN PRN ORAL Insomnia 01/13/19 08:15 01/20/19 08:14 Allergies: Coded Allergies: No Known Allergies (Unverified , 01/13/19) ROS Limited/Unobtainable: No Constitutional: Reports: no symptoms HEENT: Reports: throat pain Cardiovascular: Reports: no symptoms Respiratory: Reports: no symptoms Gastrointestinal/Abdominal: Reports: no symptoms Genitourinary: Reports: no symptoms Neurologic/Psychiatric: Reports: no symptoms Subjective 38 YO M admitted with flank pain. Now Upper resp tract infection and pharyngitis. Cover for Int Med-Dr Shaver Objective Last Vital Signs Date Time Temp Pulse Resp B/P (MAP) Pulse Ox O2 Delivery O2 Flow Rate FiO2 01/14/19 16:00 98.7 99 20 118/71 (87) 99 01/14/19 09:00 Room Air 01/14/19 07:50 21 Laboratory Tests Test 01/14/19 06:40 White Blood Count 16.5 K/UL (4.8-10.8) H Red Blood Count 4.38 M/UL (4.70-6.10) L Hemoglobin 13.1 G/DL (14.2-18.0) L Hematocrit 37.3 % (42.0-52.0) L Mean Corpuscular Volume 85 FL (80-99) Mean Corpuscular Hemoglobin 29.8 PG (27.0-31.0) Mean Corpuscular Hemoglobin Concent 35.0 G/DL (32.0-36.0) Red Cell Distribution Width 11.6 % (11.6-14.8) Platelet Count 192 K/UL (150-450) Mean Platelet Volume 8.5 FL (6.5-10.1) Neutrophils (%) (Auto) 70.9 % (45.0-75.0) Lymphocytes (%) (Auto) 18.1 % (20.0-45.0) L Monocytes (%) (Auto) 9.5 % (1.0-10.0) Eosinophils (%) (Auto) 0.9 % (0.0-3.0) Basophils (%) (Auto) 0.6 % (0.0-2.0) Erythrocyte Sedimentation Rate 34 MM/HR (0-15) H Sodium Level 139 MMOL/L (136-145) Potassium Level 3.7 MMOL/L (3.5-5.1) Chloride Level 106 MMOL/L (98-107) Carbon Dioxide Level 24 MMOL/L (21-32) Anion Gap 9 mmol/L (5-15) Blood Urea Nitrogen 12 mg/dL (7-18) Creatinine 0.8 MG/DL (0.55-1.30) Estimat Glomerular Filtration Rate > 60 mL/min (>60) Glucose Level 100 MG/DL (74-106) Calcium Level 8.7 MG/DL (8.5-10.1) Phosphorus Level 3.1 MG/DL (2.5-4.9) Magnesium Level 1.9 MG/DL (1.8-2.4) Total Bilirubin 0.3 MG/DL (0.2-1.0) Aspartate Amino Transf (AST/SGOT) 19 U/L (15-37) Alanine Aminotransferase (ALT/SGPT) 34 U/L (12-78) Alkaline Phosphatase 66 U/L (46-116) C-Reactive Protein, Quantitative 16.4 mg/dL (0.00-0.90) H Total Protein 7.0 G/DL (6.4-8.2) Albumin 2.9 G/DL (3.4-5.0) L Globulin 4.1 g/dL Albumin/Globulin Ratio 0.7 (1.0-2.7) L Microbiology Date/Time Source Procedure Growth Status 01/14/19 15:25 Nasopharynx Influenza Types A,B Antigen ([facility]) - Final Complete 01/13/19 10:30 Throat Group A Streptococcus Screen ([facility]) - Preliminary Resulted Intake and Output 01/13/19 01/14/19 19:00 07:00 Intake Total 855 ml Balance 855 ml Intake IV Total 55 ml Other 800 ml # Voids 1 Objective PHYSICAL EXAMINATION: GENERAL: The patient is awake and responsive, in no acute distress. HEAD AND NECK: Pupils are reactive to light. Extraocular movements intact. Neck was supple. No JVD. LUNGS: Good air entry. No wheezing or rales. HEART: Reveals S1, S2. Regular rate and rhythm. No gallops. ABDOMEN: Soft, nondistended, and nontender. Mildly obese. Left flank tenderness. No rebound or tenderness. No fluid shift. EXTREMITIES: No cyanosis, clubbing, or edema. NEUROLOGIC: Cranial nerves II through XII grossly intact. Motor is 5/5 in all extremities. Gait is intact. RECTAL AND GENITOURINARY: Refused and deferred. PSYCHIATRIC: Mood and affect intact. Assessment/Plan Assessment/Plan ASSESSMENT: 1. Left flank tenderness. 2. Elevated WBC, possible sepsis. 3. Pharyngitis 4. Upper respiratroy tract infection PLAN: 1. Admit the patient to medical/surgical. 2. We will follow up laboratory. 3. Clear liquid diet. 4. CT scan of the abdomen and pelvis. 5. Broad-spectrum antibiotics with Rocephin and azithromycin per ID. 6. Code status is Full Code. 7. DVT prophylaxis with heparin subcutaneous. Cliff Nowak MD Jan 14, 2019 17:55
--- NOTE | 2019-01-14 19:19 | NUR ---
HAND-OFF: Report given to OSMAN ALVARES.
--- NOTE | 2019-01-14 19:30 | NUR ---
NURSE NOTES: Patient received in bed, awake, alertx4. Denies pain at this time. Iv intact and patent. Personal belongigns and call light within easy reach. Will continue to monitor.
[2019-01-14 19:53] VITALS: BP 121/73
[2019-01-14] MEDS: cefTRIAXone 1 GM in D5W 55 ML IVPB SCH (21:03)
[2019-01-14 23:52] VITALS: BP 132/93
[2019-01-15 03:40] VITALS: BP 133/81
--- NOTE | 2019-01-15 07:18 | NUR ---
HAND-OFF: Report given to Cass BREWER.
[2019-01-15 07:33] LABS: BASOPHILS % (AUTO) 0.8 % (0.0-2.0); EOSINOPHILS % (AUTO) 3.2 % (0.0-3.0); HEMATOCRIT 38.5 % (42.0-52.0); HEMOGLOBIN 13.3 G/DL (14.2-18.0); LYMPHOCYTES % (AUTO) 28.4 % (20.0-45.0); MEAN CORPUSCULAR VOLUME 85 FL (80-99); MONOCYTES % (AUTO) 11.6 % (1.0-10.0); PLATELET COUNT 223 K/UL (150-450); RED BLOOD COUNT 4.53 M/UL (4.70-6.10); RED CELL DISTRIBUTION WIDTH 11.6 % (11.6-14.8); WHITE BLOOD COUNT 11.3 K/UL (4.8-10.8)
[2019-01-15 07:39] LABS: ALANINE AMINOTRANSFERASE 34 U/L (12-78); ALBUMIN 2.9 G/DL (3.4-5.0); ALBUMIN/GLOBULIN RATIO 0.7 (1.0-2.7); ALKALINE PHOSPHATASE 72 U/L (46-116); ANION GAP 7 mmol/L (5-15); ASPARTATE AMINO TRANSFERASE 17 U/L (15-37); BILIRUBIN,TOTAL 0.2 MG/DL (0.2-1.0); BLOOD UREA NITROGEN 15 mg/dL (7-18); CALCIUM 9.1 MG/DL (8.5-10.1); CARBON DIOXIDE 27 MMOL/L (21-32); CHLORIDE 108 MMOL/L (98-107); PHOSPHORUS 4.5 MG/DL (2.5-4.9); SODIUM 142 MMOL/L (136-145)
[2019-01-15 08:00] VITALS: BP 114/73
[2019-01-15] MEDS: Azithromycin 250mg tab ORAL SCH (08:39)
[2019-01-15] MEDS: Oseltamivir 75mg cap ORAL SCH (08:39)
--- NOTE | 2019-01-15 09:07 | NUR ---
NURSE NOTES: Received patient alert, responsive. Denies any pain at this time. Call light within reach. All needs attended. will continue to monitor. at bedside.
[2019-01-15 12:00] VITALS: BP 131/78
--- NOTE | 2019-01-15 12:12 | NUR ---
CASE MANAGEMENT: REVIEW SI: ACUTE BACTERIAL TONSILLITIS . SEPSIS T 97.9 HR 101 RR 19 BP 133/81 SAT 92% ROOM AIR WBC 11.3 IS: TAMIFLU PO BID CEPACOL PRN AZITHROMYCIN PO QD CEFTRIAXONE IV Q24HR MED/SURG STATUS DCP: PATIENT IS FROM HOME
[2019-01-15] MEDS ORDERED: AUGMENTIN 875-1 EAC1 ORAL (13:15)
--- NOTE | 2019-01-15 13:16 | Pulmonology Progress Note ---
Assessment/Plan Problems: (1) Nausea, vomiting, and diarrhea (2) Sepsis (3) Acute bacterial tonsillitis Assessment/Plan CT of neck done showing tonsillitis check electrolytes afebrile for > 24 hours. 3 days of more augmentin Subjective ROS Limited/Unobtainable: No Constitutional: Reports: no symptoms HEENT: Repors: no symptoms Allergies: Coded Allergies: No Known Allergies (Unverified , 01/13/19) Objective Last 24 Hour Vital Signs Date Time Temp Pulse Resp B/P (MAP) Pulse Ox O2 Delivery O2 Flow Rate FiO2 01/15/19 09:00 Room Air 01/15/19 08:00 97.9 73 19 114/73 (87) 92 01/15/19 07:50 79 16 Room Air 21 01/15/19 03:40 98.6 101 19 133/81 (98) 92 01/14/19 23:52 98.6 79 19 132/93 (106) 96 01/14/19 21:00 Room Air 01/14/19 19:53 97.9 69 19 121/73 (89) 98 01/14/19 19:47 70 16 Room Air 21 01/14/19 16:00 98.7 99 20 118/71 (87) 99 Intake and Output 01/14/19 01/15/19 18:59 06:59 Intake Total 500 ml 110 ml Balance 500 ml 110 ml Intake Oral 500 ml IV Total 110 ml # Voids 3 1 # Bowel Movements 1 Objective General Appearance: WD/WN Lines, tubes and drains: peripheral HEENT: normocephalic, anicteric Neck: non-tender, normal alignment Respiratory/Chest: chest wall non-tender, lungs clear Breasts: no masses Cardiovascular/Chest: normal peripheral pulses Abdomen: normal bowel sounds Genitourinary/Rectal: normal genital Microbiology Date/Time Source Procedure Growth Status 01/14/19 15:25 Nasopharynx Influenza Types A,B Antigen ([facility]) - Final Complete 01/13/19 10:30 Throat Group A Streptococcus Screen ([facility]) - Final Complete Laboratory Tests 01/15/19 05:10: White Blood Count 11.3H, Red Blood Count 4.53L, Hemoglobin 13.3L, Hematocrit 38.5L, Mean Corpuscular Volume 85, Mean Corpuscular Hemoglobin 29.3, Mean Corpuscular Hemoglobin Concent 34.4, Red Cell Distribution Width 11.6, Platelet Count 223, Mean Platelet Volume 9.0, Neutrophils (%) (Auto) 56.0, Lymphocytes (% ) (Auto) 28.4, Monocytes (%) (Auto) 11.6H, Eosinophils (%) (Auto) 3.2H, Basophils (%) (Auto) 0.8, Erythrocyte Sedimentation Rate 41H, Sodium Level 142, Potassium Level 4.0, Chloride Level 108H, Carbon Dioxide Level 27, Anion Gap 7, Blood Urea Nitrogen 15, Creatinine 1.0, Estimat Glomerular Filtration Rate > 60 , Glucose Level 99, Calcium Level 9.1, Phosphorus Level 4.5, Magnesium Level 2.0 , Total Bilirubin 0.2, Aspartate Amino Transf (AST/SGOT) 17, Alanine Aminotransferase (ALT/SGPT) 34, Alkaline Phosphatase 72, C-Reactive Protein, Quantitative 10.4H, Total Protein 7.2, Albumin 2.9L, Globulin 4.3, Albumin/ Globulin Ratio 0.7L, Monoscreen [Pending], HIV-1 RNA (PCR) log10 Value [Pending] , HIV-1 RNA Ultraquantitative (PCR) [Pending] Current Medications Medications (Trade) Dose Ordered Sig/Malissa Route PRN Reason Start Time Stop Time Status Last Admin Dose Admin Acetaminophen (Tylenol) 650 mg Q4H PRN ORAL fever 01/13/19 08:15 02/12/19 08:14 01/14/19 12:12 Al Hydroxide/Mg Hydroxide (Mylanta II) 30 ml Q6H PRN ORAL dyspepsia 01/13/19 08:15 02/12/19 08:14 Albuterol/ Ipratropium (Albuterol/ Ipratropium) 3 ml Q4H PRN HHN Shortness of Breath 01/13/19 08:15 01/18/19 08:14 Azithromycin (Zithromax) 250 mg DAILY ORAL 01/14/19 09:00 01/17/19 23:55 01/15/19 08:39 Barium Sulfate (Readi-Cat 2) 450 ml NOW PRN ORAL Radiology Procedure 01/13/19 16:30 01/15/19 16:20 Ceftriaxone Sodium 1 gm/ Dextrose 55 ml @ 110 mls/hr Q24H IVPB 01/13/19 21:00 01/20/19 20:59 01/14/19 21:03 Cetylpyridinium Chloride (Cepacol) 1 lozg Q2H PRN TURNER SORE THROAT 01/14/19 17:31 02/13/19 17:30 01/14/19 18:38 Iopamidol (Isovue-300 100ml) 100 ml NOW PRN INJ Radiology Procedure 01/13/19 16:30 01/15/19 16:29 Ketorolac Tromethamine (Toradol 30mg) 30 mg Q6H PRN IV For Pain 01/13/19 07:15 01/18/19 07:14 01/14/19 16:34 Nitroglycerin (Ntg) 0.4 mg Q5M PRN SL Prn Chest Pain 01/13/19 08:15 02/12/19 08:14 Ondansetron HCl (Zofran) 4 mg Q6H PRN IVP Nausea & Vomiting 01/13/19 08:15 02/12/19 08:14 Oseltamivir Phosphate (Tamiflu) 75 mg TWICE A DAY ORAL 01/14/19 18:00 01/19/19 17:59 01/15/19 08:39 Pantoprazole (Protonix) 40 mg DAILY ORAL 01/13/19 09:00 02/12/19 08:59 01/15/19 08:39 Polyethylene Glycol (Miralax) 17 gm DAILYPRN PRN ORAL Constipation 01/13/19 08:15 02/12/19 08:14 Promethazine HCl/ Codeine (Phenergan with Codeine) 5 ml Q4H PRN ORAL For Cough 01/13/19 08:15 02/12/19 08:14 Temazepam (Restoril) 15 mg HSPRN PRN ORAL Insomnia 01/13/19 08:15 01/20/19 08:14 Maryana Moscoso MD Jan 15, 2019 13:16
[2019-01-15] MEDS ORDERED: Tubing IV Secondary IV ONE (13:43)
[2019-01-15] MEDS ORDERED: NS 275ml ONE (13:43)
--- NOTE | 2019-01-15 14:11 | NUR ---
NURSE NOTES: patient with order for discharge home. Discharge instructions provided to patient and . All belongings with patient. Prescription provided. IV line removed. Accompanied patient to lobby.
--- NOTE | 2019-01-16 19:25 | Cardiology Report ---
APPROVED REPORT EKG Measurement Heart [id number] Sinus rhythm with occasional premature ventricular complexes Otherwise normal ECG
--- NOTE | 2019-01-16 19:30 | Cardiology Report ---
APPROVED REPORT EKG Measurement Heart [id number] Normal sinus rhythm Normal ECG
--- NOTE | 2019-01-17 10:22 | Discharge Summary ---
Discharge Summary Discharge Summary _ Chart summary DATE OF ADMISSION: 01/13/2019 DATE OF DISCHARGE: 01/15/2019 DISCHARGED BY: Dr. Shaver REASON FOR ADMISSION: 38 years old male , without significant past medical history , presented to the hospital complaining of severe back pain , mostly in the left flank area , associated with nausea and vomiting and sore throat for few days. Patient denied fever and chills. Patient denied loss of consciousness or blackouts. Patient denied fall or trauma. Laboratory workup revealed leukocytosis with WBC 21, stable hemoglobin and hematocrit. Neutrophils 81. Stable electrolytes and renal parameters , stable LFT. Lactic acid 0.8. Urinalysis revealed no evidence of UTI. Patient was admitted for further management. CONSULTANTS: pulmonary Dr. Moscoso ID specialist Dr. Sanchez [place] [employer] [facility] COURSE: Patient admitted to medical surgical floor. Patient with low-grade fever on the morning of admission. Infectious disease specialist followed. Abdominal ultrasound revealed no evidence of gallstones or dilated ducts. Liver demonstrated diffusely increased echogenicity , consistent with diffuse hepatocellular disease, most likely fatty changes. CT of the abdomen and pelvis demonstrated no evidence of significant bowel loop dilatation to suggest obstructive process. Prostate gland appeared prominent, measuring 5.5 x 4.1 cm in maximal transverse dimension. Noted diverticulosis without evidence of diverticulitis. No free intraperitoneal fluid or free intraperitoneal gas. Appendix was unremarkable. No hydronephrosis . Pancreas unremarkable . Lung bases revealed mild linear atelectasis versus scaring at the lung bases. Infectious disease specialist followed. CT of the neck revealed enlarged bilateral parapharyngeal tonsil, s suggestive of tonsillitis. Scattered, prominent, but not enlarged by CT size criteria, lymph nodes. No organized fluid collection. Sore throat with nausea and vomiting were all likely to due to tonsillitis , likely viral infection, however possible bacterial- as per ID specialist . Antibiotic provided as per ID recommendation. Cepacol d lozenges provided for comfort. Neisseria gonorrhea by RNA and Chlamydia trachomatis by RNA were negative HIV test nonreactive. Monoscreen negative. Throat culture negative, no evidence of beta strep was isolated. Rapid influenza screen test was negative. Fevers resolved. Leukocytosis trending down; from initial 21 down to 11.3 on the day of discharge. Patient was able to tolerate diet. DVT prophylaxis provided. Antitussive provided as needed and was ready for discharge home to continue antibiotic for additional 3 days. FINAL DIAGNOSES: Possible sepsis Acute tonsillitis, viral vs bacterial Leukocytosis Nausea and vomiting - resolved DISCHARGE MEDICATIONS: See Medication Reconciliation list. DISCHARGE INSTRUCTIONS: Patient was discharged home . Follow up with primary care provider in one week. I have been assigned to dictate discharge summary for this account. I was not involved in the patient's management. Rina Yoon NP Jan 17, 2019 10:22
== END 2019-01-15 14:15 | disposition home or self-care (01) | DRG 720 ==
LOC: EMR 01-13 01:21 → 4E 01-13 02:44 → EDBEDREQ 01-13 03:49
DX: A41.9 Sepsis, unspecified organism (principal); B97.89 Other viral agents as the cause of diseases classified elsewhere; J03.80 Acute tonsillitis due to other specified organisms; R11.2 Nausea with vomiting, unspecified; R10.9 Unspecified abdominal pain; R19.7 Diarrhea, unspecified
CPT/HCPCS: 36415; 70491; 71046; 74177; 76700; 80053; 80069; 81003; 82550; 83605; 83690; 83735; 84100; 85007; 85025; 85651; 86140; 86308; 86703; 86710; 87070; 87081; 87491; 87536; 87590; 93005; 94664; 96361; 96365; 96375; 99285; J2405